=== PATIENT | male | born 1980 | race Caucasian/White ===

== ENCOUNTER 2018-12-05 14:20 | Outpatient (CLI) | payer OTHER | END 2018-12-05 14:21 | disposition home or self-care (01) | LOC: DTY/OP 14:20 | PROVIDERS: ATTEND Surgery | DX: E66.01 Morbid (severe) obesity due to excess calories (principal) | CPT/HCPCS: 97802 ==

== ENCOUNTER 2019-02-27 09:19 | Outpatient (CLI) | payer OTHER ==
[2019-02-27 15:21] LABS: #Basophils 0.1 thou/uL (0.0-0.2); #Eosinphils 0.3 thou/uL (0.0-0.7); #Lymphocytes 2.6 thou/uL (1.20-3.40); #Monocytes 0.5 thou/uL (0.11-0.59); #Neutrophils 5.4 thou/uL (1.40-6.50); %Basophils 0.6 % (0.0-1.0); %Eosinophils 3.6 % (0.0-10.0); %Lymphocytes 29.4 % (21.0-51.0); %Monocytes 5.4 % (0.0-10.0); Hemoglobin 14.9 g/dL (14.0-18.0); Mean Corpuscular HGB CONC 35.3 g/dL (32.0-36.0); Mean Corpuscular Hemoglobin 29.5 pg (27.0-31.0); Mean Corpuscular Volume 83.5 fL (78.0-98.0); Mean Platelet Volume 8.5 fL (7.4-10.4); Platelet Count 223 thou/uL (130-400); RBC Distribution Width 12.3 % (11.5-14.5); Red Blood Cell (RBC) Count 5.07 mill/uL (4.70-6.10); White Blood Cell (WBC) Count 8.8 thou/uL (4.8-10.8)
[2019-02-27 15:32] LABS: Hemoglobin A1c 6.7 % (4.0-6.0)
--- NOTE | 2019-02-27 15:35 | RAD ---
TWO VIEWS CHEST: 02/27/19 PROVIDED CLINICAL HISTORY: Preop. FINDINGS: The cardiac and mediastinal silhouette is within normal limits. The lungs appear clear. No pleural fl uid or pneumothorax apparent. IMPRESSION: No evidence for an acute cardiopulmonary process. POS: OFF
[2019-02-27 15:49] LABS: ALT (SGPT) 29 U/L (8-55); AST (SGOT) 19 U/L (5-34); Albumin 4.7 g/dL (3.5-5.0); Alkaline Phosphatase 59 U/L (40-110); Anion Gap 14 mmol/L (10-20); BUN (Urea Nitrogen) 21 mg/dL (8.9-20.6); Bilirubin, Direct 0.1 mg/dL (0.1-0.3); Bilirubin, Total 0.4 mg/dL (0.2-1.2); Calc. Creatinine Clearance 0 mL/min (70-130); Calcium 9.9 mg/dL (7.8-10.44); Carbon Dioxide 22 mmol/L (22-29); Chloride 105 mmol/L (98-107); Estimated GFR-MDRD 80; Globulin 2.7 g/dL (2.4-3.5); Glucose 120 mg/dL (70-105); Potassium 4.3 mmol/L (3.5-5.1); Protein, Total 7.4 g/dL (6.0-8.3); Sodium 137 mmol/L (136-145)
--- NOTE | 2019-03-02 23:11 | EKG ---
Test Reason : Blood Pressure : / mmHG Vent. Rate : 071 BPM Atrial Rate : 071 BPM P-R Int : 142 ms QRS Dur : 088 ms QT Int : 374 ms P-R-T Axes : 048 066 024 degrees QTc Int : 406 ms Normal sinus rhythm Normal ECG No previous ECGs available Confirmed by EARL MOLINA M.D. ([id number] on 03/02/2019 11:11:21 PM Referred By: DARIN Confirmed By:EARL MOLINA M.D.
== END 2019-02-27 09:20 | disposition home or self-care (01) ==
LOC: LABBT 09:19
PROVIDERS: ATTEND Surgery
DX: Z01.818 Encounter for other preprocedural examination (principal); E66.01 Morbid (severe) obesity due to excess calories
CPT/HCPCS: 71046; 80053; 80076; 83036; 85025; 93005; 93010

== ENCOUNTER 2019-02-27 14:00 | Inpatient (IN) | payer OTHER ==
[2019-03-05] MEDS ORDERED: Heparin 5,000 UNITS/ML VIAL ONE (07:45)
[2019-03-05] MEDS ORDERED: Bupivacaine/Epinephrine 0.25% 30 ML VIAL ONE ×2 (08:51)
[2019-03-05] MEDS ORDERED: Fentanyl 100 MCG/2 ML VIAL ONE ×2 (08:54→10:43)
[2019-03-05] MEDS ORDERED: SUGAMMADEX SODIUM 200 MG/2 ML VIAL ONE (09:54)
[2019-03-05] MEDS ORDERED: diphenhydrAMINE 50 MG/ML VIAL IVP PRN ×2 (10:22→10:29)
[2019-03-05] MEDS ORDERED: Dextrose 5% in Water 1,000 ML IV PRN (10:22)
[2019-03-05] MEDS ORDERED: Hydrocodone-Acetamin 15 ML UDCUP PO PRN (10:22)
[2019-03-05] MEDS ORDERED: Ondansetron PF 4 MG/2 ML Vial IVP PRN (10:22)
[2019-03-05] MEDS ORDERED: Dextrose 50% Abboject 50 ML SYRINGE SLOW IVP PRN (10:22)
[2019-03-05] MEDS ORDERED: Promethazine HCl 25 MG/ML VIAL IM PRN ×3 (10:22→10:38)
[2019-03-05] MEDS ORDERED: hydrALAZINE 20 MG/ML VIAL SLOW IVP PRN (10:22)
[2019-03-05] MEDS ORDERED: fentaNYL Citrate/PF 2,000 MCG in Sodium Chloride 0.9% 60 ML IV PRN (10:29)
[2019-03-05] MEDS ORDERED: diphenhydrAMINE 50 MG/ML VIAL IM PRN (10:29)
[2019-03-05] MEDS ORDERED: Naloxone HCl 0.4 mg/ml Vial IV PRN (10:29)
[2019-03-05] MEDS ORDERED: Zolpidem Tartrate 5 MG TAB PO PRN (10:29)
[2019-03-05] MEDS ORDERED: diphenhydrAMINE 25 MG CAP PO PRN (10:29)
[2019-03-05] MEDS ORDERED: Communication Order-Pharmacy FS SCH (10:30)
[2019-03-05] MEDS ORDERED: Sodium Chloride 0.9% (PF) 10 ML VIAL FS PRN (10:35)
[2019-03-05] MEDS ORDERED: Promethazine HCl 25 MG/ML VIAL SLOW IVP PRN (10:38)
[2019-03-05] MEDS ORDERED: Ondansetron HCl/PF 4 MG/2 ML Vial IVP PRN (10:38)
[2019-03-05] MEDS ORDERED: Ketorolac Tromethamine 30 MG/ML VIAL IVP SCH (12:00)
--- NOTE | 2019-03-05 12:59 | OP ---
DATE OF PROCEDURE: 03/05/2019 PREOPERATIVE DIAGNOSIS: Morbid obesity. PROCEDURES PERFORMED: Laparoscopic sleeve gastrectomy and esophagogastroscopy. INDICATIONS: A 38-year-old male, morbidly obese, who has attempted multiple weight loss programs without success. FINDINGS: A 38-Tajik bougie used. DESCRIPTION OF PROCEDURE: After informed consent was obtained, the patient was taken to the operating room, given general endotracheal anesthesia. He was placed in the supine position. Abdomen was prepped and draped in usual fashion. Local anesthesia was infiltrated subcutaneously and deep. A 12 mm incision was performed approximately 8-inch below the xiphoid slightly to the left. Veress needle was inserted. Drop test was performed. Pneumoperitoneum was created to a pressure of 15 mmHg. The patient placed in a steep reverse Trendelenburg position. Grey liver retractor inserted. Left lobe of the liver retracted superiorly. Pylorus identified. A 12 mm port was placed on the right beneath it, two 12s were placed on the left subcostal. The omentum was taken off to the greater curvature, 5 cm from the pylorus utilizing the LigaSure. Short gastrics divided with LigaSure and left crura defined with the LigaSure. A 38-Tajik bougie inserted, directed into the antrum. The linear 60 mm green load stapler used to divide the antrum to the bougie, two goals were used along the bougie, and a series of blues through the angle of His. Intraoperative endoscopy was performed, the video endoscope inserted under direct vision and advanced into the sleeve. The staple line inspected. There was no bleeding. Staple line then tested by inflating the new stomach with pressurized air and water, there was no air leak. Stomach decompressed. Scope removed. The remnant stomach removed from the abdomen through the left lateral port site. The fascia was closed with 0 Vicryl suture and the GraNee needle. Trocars and retractors were removed. Skin closed with interrupted 4-0 Rapide. Dermabond applied. The patient tolerated the procedure well, transferred to Recovery in good condition. Sponge and needle count verified correct x2. Job ID: [id number]
[2019-03-05] MEDS: D5 1/2 NS w/20 mEq KCL 1,000 ML IV SCH ×3 (13:10→23:43)
[2019-03-05 13:12] VITALS: BMI 55.3
[2019-03-05] MEDS: Ondansetron PF 4 MG/2 ML Vial IVP PRN ×2 (14:32→21:08)
[2019-03-05] MEDS: CEFAZOLIN 2 GM in Premix Bag 1 BAG IVPB SCH ×2 (16:45→23:44)
[2019-03-06] MEDS: Ondansetron PF 4 MG/2 ML Vial IVP PRN ×3 (04:17→23:34)
[2019-03-06 04:57] LABS: #Lymphocytes 1.7 thou/uL (1.20-3.40); #Monocytes 0.7 thou/uL (0.11-0.59); #Neutrophils 8.7 thou/uL (1.40-6.50); %Eosinophils 0.2 % (0.0-10.0); %Lymphocytes 15.3 % (21.0-51.0); %Monocytes 6.1 % (0.0-10.0); %Neutrophils 78.4 % (42.0-75.0); Hemoglobin 14.2 g/dL (14.0-18.0); Mean Corpuscular Hemoglobin 28.9 pg (27.0-31.0); Mean Corpuscular Volume 84.9 fL (78.0-98.0); Platelet Count 238 thou/uL (130-400); RBC Distribution Width 12.6 % (11.5-14.5); Red Blood Cell (RBC) Count 4.91 mill/uL (4.70-6.10); White Blood Cell (WBC) Count 11.1 thou/uL (4.8-10.8)
[2019-03-06 05:19] LABS: Anion Gap 11 mmol/L (10-20); BUN (Urea Nitrogen) 11 mg/dL (8.9-20.6); Calc. Creatinine Clearance 190 mL/min (70-130); Calcium 9.2 mg/dL (7.8-10.44); Carbon Dioxide 25 mmol/L (22-29); Chloride 105 mmol/L (98-107); Estimated GFR-MDRD 71; Glucose 138 mg/dL (70-105); Potassium 4.2 mmol/L (3.5-5.1); Sodium 137 mmol/L (136-145)
[2019-03-06] MEDS ORDERED: Enoxaparin Sodium 40 MG/0.4 ML SYRINGE SC SCH (06:00)
[2019-03-06] MEDS ORDERED: FLU VACC QS2019-20(6MOS UP)/PF 60 MCG/0.5 ML SYRINGE IM ONE (09:00)
--- NOTE | 2019-03-06 09:14 | RAD ---
EXAM: Single contrast Upper GI HISTORY: Status post gastric sleeve procedure. Evaluate for enteric leak. COMPARISON: None FINDINGS: A single contrast upper GI was performed. Esophageal motility is normal. No mucosal lesions are seen in the esophagus. No extrinsic compression on the esophagus is seen. No hiatal hernia. No gastroesophageal reflux. Patient is status post gastric sleeve. The contrast passes through the stomach into the duodenum without difficulty. The duodenum is normal in appearance without focal abnormality. IMPRESSION: Status post gastric sleeve without evidence of complication.
[2019-03-06] MEDS: Pantoprazole 40 MG VIAL IVP SCH (09:43)
[2019-03-06] MEDS: D5 1/2 NS w/20 mEq KCL 1,000 ML IV SCH ×2 (10:55→17:48)
[2019-03-06] MEDS: Hydrocodone-Acetamin 15 ML UDCUP PO PRN ×2 (17:16→23:36)
[2019-03-07] MEDS: Ketorolac Tromethamine 30 MG/ML VIAL IVP PRN ×2 (00:39→09:06)
[2019-03-07] MEDS: D5 1/2 NS w/20 mEq KCL 1,000 ML IV SCH (02:25)
[2019-03-07] MEDS: Hydrocodone-Acetamin 15 ML UDCUP PO PRN ×2 (05:53→11:38)
[2019-03-07] MEDS: Ondansetron PF 4 MG/2 ML Vial IVP PRN (05:53)
[2019-03-07] MEDS ORDERED: Enoxaparin Sodium 40 MG/0.4 ML SYRINGE SC SCH (09:00)
[2019-03-07] MEDS: Pantoprazole 40 MG VIAL IVP SCH (09:02)
[2019-03-07] MEDS ORDERED: Acetaminophen 500 MG TAB PO PRN (10:22)
[2019-03-07] MEDS ORDERED: Ibuprofen 600 MG TAB PO PRN (10:22)
--- NOTE | 2019-03-07 10:34 | PRG ---
DATE OF SERVICE: 03/07/2019 SUBJECTIVE: Freddy Peters is doing well today. He is status post 2 days ago laparoscopic sleeve gastrectomy. OBJECTIVE: VITAL SIGNS: Temperature 97.4 degrees, pulse 74, blood pressure . LUNGS: Clear to auscultation. CARDIAC: Regular rate and rhythm. No murmur or gallop. ABDOMEN: Soft, obese. Surgical wounds look good. He is nontender. Good bowel sounds. EXTREMITIES: Unremarkable. LABORATORY DATA: None today. ASSESSMENT AND PLAN: Doing well after sleeve gastrectomy. His pain is well controlled. He is tolerating his liquids. He will follow his diet advancement with bariatric protocol, continuing clear liquids for 2 weeks, purees 2 to 4 weeks and soft foods after that. Follow up with Dr. Torres in 1 to 2 weeks. Diet as above. Activity, I encouraged ambulation and up in a chair and activity. No lifting restrictions. Job ID: [id number]
[2019-03-07 12:09] VITALS: BP 126/69; TEMP 96.1
== END 2019-03-07 12:11 | disposition home or self-care (01) | DRG 621 ==
LOC: SURG A 03-05 07:26
PROVIDERS: ADMIT Surgery; ATTEND Surgery
PROC: 0DB64Z3 Excision of Stomach, Percutaneous Endoscopic Approach, Vertical (ICD-10-PCS; principal; 2019-03-05)
PROC: 0DJ08ZZ Inspection of Upper Intestinal Tract, Via Natural or Artificial Opening Endoscopic (ICD-10-PCS; 2019-03-05)
DX: E66.01 Morbid (severe) obesity due to excess calories (principal); Z68.43 Body mass index [BMI] 50.0-59.9, adult; Z79.899 Other long term (current) drug therapy; J45.909 Unspecified asthma, uncomplicated; Z98.890 Other specified postprocedural states; G47.00 Insomnia, unspecified
CPT/HCPCS: 36415; 74241; 80048; 85025; 88305; 88307; 88312; 90471; 90686; C9113; G0008; J0690; J1644; J1650; J1885; J2405; J3010